=== PATIENT | male | born 1975 | race African-American/Black ===

== ENCOUNTER 2017-10-29 16:42 | Emergency (ER) | payer SELFPAY ==
[~2017-10-29] VITALS: Ht 182.9 cm; Wt 86.2 kg
[2017-10-29 17:01] VITALS: BP 146/98
== END 2017-10-29 18:10 | disposition home or self-care (01) ==
LOC: ER 17:00
DX: K04.7 Periapical abscess without sinus (principal); F17.210 Nicotine dependence, cigarettes, uncomplicated
CPT/HCPCS: 41800